=== PATIENT | male | born 1965 | race Caucasian/White ===

== ENCOUNTER 2018-09-19 01:33 | Outpatient (CLI) | payer OTHER | END 2018-09-19 01:34 | disposition short-term general hospital (02) | LOC: EMS 01:33 | PROVIDERS: ATTEND Surgery | DX: R07.9 Chest pain, unspecified (principal) | CPT/HCPCS: A0425; A0433 ==

== ENCOUNTER 2018-10-29 10:04 | Outpatient (CLI) | payer OTHER ==
--- NOTE | 2018-10-29 16:54 | Ultrasound Report ---
Reason: ACUTE STEMI, CAD Procedure Date: 10/29/2018 Accession Number: [id number] / [id number] Procedure: US - Carotid Doppler Complete CPT Code: FULL RESULT: EXAM: BILATERAL CAROTID AND VERTEBRAL ARTERY DUPLEX DOPPLER ULTRASOUND. EXAM DATE: 10/29/2018 10:33 AM CLINICAL HISTORY: Acute ST-elevation myocardial infarction, coronary artery disease. COMPARISON: None. TECHNIQUE: Grayscale imaging, color Doppler, and duplex spectral Doppler were used to evaluate the carotid and vertebral arteries bilaterally. Static images were obtained. FINDINGS: Minimal focal plaque is identified in the right and left internal carotid arteries near the bifurcation. Normal antegrade flow is present in bilateral vertebral arteries. VELOCITIES (cm/sec): Right CCA mid: PSV 76 cm/sec CCA dist: PSV 65 cm/sec ICA prox: PSV 52 cm/sec, EDV 17 cm/sec ICA mid: PSV 72 cm/sec, EDV 25 cm/sec ICA dist: PSV 79 cm/sec, EDV 27 cm/sec ECA: PSV 97 cm/sec Vert: PSV 33 cm/sec ICA/CCA: 1.22 Left CCA mid: PSV 75 cm/sec CCA dist: PSV 71 cm/sec ICA prox: PSV 80 cm/sec, EDV 25 cm/sec ICA mid: PSV 58 cm/sec, EDV 16 cm/sec ICA dist: PSV 80 cm/sec, EDV 25 cm/sec ECA: PSV 105 cm/sec Vert: PSV 34 cm/sec ICA/CCA: 1.13 ICA diameter stenosis: Right: <50% by velocity and <70% by NASCET criteria. Left: <50% by velocity and <70% by NASCET criteria. IMPRESSION: 1. Minimal bilateral carotid artery plaquing predominantly near the bifurcations. 2. In the right carotid artery there are no elevated carotid artery velocities to suggest hemodynamically significant stenosis. 3. In the left carotid artery there are no elevated carotid artery velocities to suggest hemodynamically significant stenosis. 4. Normal antegrade flow is present in bilateral vertebral arteries. General Recommendations: Stenosis =50% ICA - Follow-up ultrasound 6-12 months Stenosis <50% ICA - High Risk Patient with plaque - Follow-up ultrasound 1-2 years Normal Study but High Risk Patient - Follow-up ultrasound 3-5 years Management recommendations and diagnostic criteria are based on current IAC endorsed standards in Carotid Artery Stenosis: Grayscale and Doppler Ultrasound Diagnosis. Validated velocity measurements with angiographic measurements and velocity criteria are extrapolated from diameter data as defined by the Society of Radiologists in Ultrasound Consensus Conference Radiology 2003; 229;340-346. RADIA
== END 2018-10-29 10:05 | disposition home or self-care (01) ==
LOC: DI 10:04
PROVIDERS: ATTEND Nurse Practitioner Family
DX: I21.3 ST elevation (STEMI) myocardial infarction of unspecified site (principal); I25.10 Atherosclerotic heart disease of native coronary artery without angina pectoris
CPT/HCPCS: 93880

== ENCOUNTER 2021-02-25 07:43 | Outpatient (CLI) | payer OTHER ==
[2021-02-25 15:19] LABS: BUN - BLOOD UREA NITROGEN 16 mg/dL (6-20); CALCIUM 9.2 mg/dL (8.5-10.3); CARBON DIOXIDE - CO2 29 mmol/L (21-32); CHLORIDE 100 mmol/L (101-111); CHOL/HDL RATIO 3.5 (<5.0); CHOLESTEROL 254 mg/dL; CREATININE 0.8 mg/dL (0.6-1.2); GFR - MDRD 100 (>89); GLUCOSE 123 mg/dL (70-100); HDL CHOLESTEROL 73 mg/dL; LDL CHOLESTEROL,CALCULATED 155 mg/dL; LDL/HDL RATIO 2.1 (<3.6); POTASSIUM 4.4 mmol/L (3.5-5.0); SODIUM 138 mmol/L (135-145); TRIGLYCERIDES 131 mg/dL; VLDL CHOLESTEROL 26 mg/dL
== END 2021-02-25 07:44 | disposition home or self-care (01) ==
LOC: LAB.S 07:43
PROVIDERS: ATTEND Internal Medicine Cardiovascular Disease
DX: I25.10 Atherosclerotic heart disease of native coronary artery without angina pectoris (principal)
CPT/HCPCS: 36415; 80048; 80061; 83721

== ENCOUNTER 2021-04-13 14:23 | Outpatient (CLI) | payer OTHER ==
[2021-04-13 23:19] LABS: CHLAMYDIA TRACHOMATIS DNA NEGATIVE (NEGATIVE); NEISSERIA GONORRHOEAE DNA NEGATIVE (NEGATIVE)
[2021-04-15 12:17] LABS: HEPATITIS C ANTIBODY NON-REACTIVE (NON-REACTIVE)
[2021-04-15 14:06] LABS: HIV AG/AB 4TH GEN NON-REACTIVE (NON-REACTIVE)
[2021-04-16 13:31] LABS: HSV 1 IGG TYPE SPECIFIC AB <0.90 index; HSV 2 IGG TYPE SPECIFIC AB <0.90 index
== END 2021-04-13 14:24 | disposition home or self-care (01) ==
LOC: LAB.S 14:23
PROVIDERS: ATTEND Nurse Practitioner Family
DX: Z11.3 Encounter for screening for infections with a predominantly sexual mode of transmission (principal); Z12.5 Encounter for screening for malignant neoplasm of prostate
CPT/HCPCS: 36415; 81599; 84153; 86592; 86695; 86696; 86803; 87389; 87491; 87591; 87661